=== PATIENT | female | born 1975 ===

== ENCOUNTER 2017-01-11 09:31 | Emergency (ER) | payer OTHER ==
[2017-01-11 09:45] VITALS: BP 121/70; PULSE 86; RESP 18; TEMP 98.2; O2SAT 97
--- NOTE | 2017-01-11 10:37 | ED PDOC ---
HPI: CCC, URI, Sore Throat Time Seen by Provider: 01/11/17 10:12 Chief Complaint (Nursing): Flu-like Symptoms Chief Complaint (Provider): cough, congestion, sore throat History Per: Patient History/Exam Limitations: no limitations Onset/Duration Of Symptoms: Gradual Current Symptoms Are (Timing): Still Present Location Of Pain: Throat Sick Contacts (Context): None Associated Symptoms: Sore Throat, Cough, Sputum, Myalgias. denies: Vomiting, Diarrhea Severity: Moderate Additional Complaint(s): 41yo female told in the distant past she possibly has lupus now presents c/o malaise sore throat and productive cough ongoing for about 2 months. Denies hemoptysis, weakness, syncope or chest pain. Denies swelling to legs, joint pains or skin changes. Past Medical History Reviewed: Historical Data, Nursing Documentation, Vital Signs Vital Signs: Last Vital Signs Temp 98.2 F 01/11/17 09:42 Pulse 86 01/11/17 09:42 Resp 18 01/11/17 09:42 BP 121/70 01/11/17 09:42 Pulse Ox 97 01/11/17 10:39 - Medical History Other PMH: ?lupus - Surgical History Surgical History: No Surg Hx - Family History Family History: States: Unknown Family Hx - Living Arrangements Living Arrangements: With Family - Social History Current smoker - smoking cessation education provided: No - Home Medications Home Medications: Ambulatory Orders Medication Instructions Recorded Azithromycin [Zithromax] 250 mg PO DAILY #6 tab 01/11/17 Guaifenesin [Mucinex ER] 600 mg PO BID #10 tab 01/11/17 - Allergies Allergies/Adverse Reactions: Allergies Allergy/AdvReac Type Severity Reaction Status Date / Time No Known Allergies Allergy Verified 01/11/17 09:42 Review of Systems Constitutional: Positive for: Malaise. Negative for: Sweats, Weight loss Eyes: Negative for: Vision Change, Eyelid Inflammation ENT: Positive for: Nose Congestion, Throat Pain. Negative for: Nose Pain, Throat Swelling Cardiovascular: Negative for: Chest Pain, Palpitations, Orthopnea Respiratory: Positive for: Cough, Pleuritic Pain, Sputum. Negative for: Shortness of Breath, Hemoptysis, SOB with Exertion Gastrointestinal: Negative for: Nausea, Vomiting, Abdominal Pain Genitourinary Female: Negative for: Dysuria, Frequency Musculoskeletal: Positive for: Other (+myalgia mild) Skin: Negative for: Rash, Lesions, Jaundice Neurological: Negative for: Weakness, Numbness, Seizures, Headache, Dizziness Physical Exam - Reviewed Nursing Documentation Reviewed: Yes Vital Signs Reviewed: Yes - Physical Exam Appears: Positive for: Well, Non-toxic, No Acute Distress Head Exam: Positive for: ATRAUMATIC, NORMAL INSPECTION, NORMOCEPHALIC Skin: Positive for: Normal Color, Warm, DRY Eye Exam: Positive for: EOMI, Normal appearance, PERRL ENT: Positive for: Pharyngeal Erythema. Negative for: Sinus Pain/Drainage, Tonsillar Swelling Neck: Positive for: Normal, Painless ROM Cardiovascular/Chest: Positive for: Regular Rate, Rhythm Respiratory: Positive for: Normal Breath Sounds, Other (+cough). Negative for: Wheezing, Respiratory Distress Gastrointestinal/Abdominal: Positive for: Normal Exam, Bowel Sounds, Soft Back: Positive for: Normal Inspection Extremity: Positive for: Normal ROM Neurologic/Psych: Positive for: Alert, Oriented - ECG O2 Sat by Pulse Oximetry: 97 Medical Decision Making Medical Decision Making: Initial CXR poorly positioned as d/w radiologist thus 2 view obtained and report reviewed. Given persistent symptoms Rx Azithromycin, followup PMD. no signs sepsis, respiratory failure or other systemic process to warrant hospitalization or further workup in ED at this time. Disposition - Clinical Impression Clinical Impression: Cough - Patient ED Disposition Is Patient to be Admitted: No Counseled Patient/Family Regarding: Studies Performed, Diagnosis, Need For Followup, Rx Given - Disposition Referrals: [facility] [Outside] Disposition: Routine/Home Disposition Time: 14:30 Condition: STABLE Prescriptions: Guaifenesin [Mucinex ER] 600 mg PO BID #10 tab Azithromycin [Zithromax] 250 mg PO DAILY #6 tab Instructions: Acute Cough (ED) Print Language: TAJIK
--- NOTE | 2017-01-11 11:18 | RAD ---
HISTORY: cough COMPARISON: No prior. FINDINGS: LUNGS: No pulmonary infiltrate. Heart appears on the right side. This may be due to dextro cardia or may reflect mislabeling of the film. Nodular opacity at left lung base most likely represents a nipple shadow. Repeat chest radiograph with nipple markers is advised. . PLEURA: No significant pleural effusion identified, no pneumothorax apparent. CARDIOVASCULAR: Dextro cardia versus mislabeling of film. Normal heart size. OSSEOUS STRUCTURES: No significant abnormalities. VISUALIZED UPPER ABDOMEN: Normal. OTHER FINDINGS: None. IMPRESSION: Dextro cardia versus mislabeled film. Nodule at left lung base likely represents nipple shadow. Recommend repeat PA chest radiograph with nipple markers. No pulmonary infiltrate.
--- NOTE | 2017-01-11 12:54 | RAD ---
HISTORY: abnormal first CXR, place nipple markers COMPARISON: 01/11/2017 at 10:51 a.m. TECHNIQUE: Chest PA and lateral FINDINGS: LUNGS: No pulmonary infiltrate. Nodular densities seen at the left lung base on prior examination is now seen to be symmetric with the right side and represents nipple shadow. PLEURA: No significant pleural effusion identified. No pneumothorax apparent. CARDIOVASCULAR: Left aortic arch. Previous film was obliquely positioned. Heart situated centrally. Mildly atypical hernia contour. Patient is still mildly obliquely positioned. Heart appears unremarkable in lateral projection. OSSEOUS STRUCTURES: No significant abnormalities. VISUALIZED UPPER ABDOMEN: Normal. OTHER FINDINGS: None. IMPRESSION: No acute infiltrate. Mildly atypical cardiac contour, possibly artifact. No pulmonary nodule identified.
== END 2017-01-11 15:45 | disposition home or self-care (01) ==
LOC: H.ER 09:31
DX: R05 Cough (principal); J02.9 Acute pharyngitis, unspecified